=== PATIENT | male | born 1985 | race American Indian/Alaskan Native ===

== ENCOUNTER 2017-04-11 02:29 | Inpatient (IN) | payer BC, OTHER ==
[~2017-04-11 02:29] MED LIST: AMIDATE IV ONE; ZEMURON IV ONE
[2017-04-11] MEDS ORDERED: NARCAN 0.4 MG/1 ML ONE (02:50)
--- NOTE | 2017-04-11 02:56 | Emergency Department Report ---
ED General Adult HPI - General Chief complaint: Overdose Stated complaint: MH Time Seen by Provider: 04/11/17 02:54 Source: patient, family, RN notes reviewed, old records reviewed Mode of arrival: Wheelchair Limitations: Altered Mental Status, Other - History of Present Illness Initial comments: This is a 32-year-old male, the patient is previously unknown to me. Past medical history of convulsions, amphetamine abuse, toxic metabolic encephalopathy, rhabdomyolysis. Patient is brought to the hospital by friends/family for altered mental status and delirium. They indicate that the patient consumed alcohol, and possibly latricia. In the ER, patient was delirious, agitated, and not cooperative. He received 5 mg of Valium, then 130 mg of phenobarbital, and then 260 mg of phenobarbital. He continued to be agitated, combative, and was pulling at his restraints, almost fell off of the stretcher, and was clearly digit himself and staff members and other patients. Therefore, the patient was intubated for airway protection. Patient was placed on a nasal cannula at 15 L/m, and preoxygenated with 100% FiO2 in addition to nasal cannula. Patient was intubated using direct laryngoscopy with a Gilmer 3 blade, with bolugie introducing device without complications. Patient was found to be febrile with a temperature of 100.6 rectally, tachycardic, and had an elevated lactic acid level. Clinical picture is most likely consistent with sympathomimetic toxicity. He did have fatigable clonus in the bilateral lower extremities but was not hyperreflexic. I contacted his mother, Miss Candice Huber; [phone], and discussed the patient's case and presentation with her. She verbalized understanding, and I did recommend a spinal tap to exclude meningitis and encephalitis. The risks, benefits, alternatives were discussed with Miss Huber. She refused a spinal tap, and requested supportive care with IV antibiotics, and prefers to follow- up culture results. Laboratory studies reviewed, lactic acidosis most likely secondary to convulsive activity, possible tourniquet time. Patient found to be febrile, this is most likely secondary to sympathomimetic toxicity, therefore, patient is placed on active cooling Measures, including ice in the groin and the axilla. Case is presented to the Hospital physician, Dr. Magallanes, who accepts the patient to his service. . -: Gradual Consistency: constant Improves with: none Worsens with: none Associated Symptoms: confusion, diaphoresis, fever/chills - Related Data Home Medications Medication Instructions Recorded Confirmed Last Taken No Known Home Medications [No 10/17/15 10/17/15 Unknown Reported Home Medications] Allergies Allergy/AdvReac Type Severity Reaction Status Date / Time No Known Allergies Allergy Verified 10/16/15 22:33 ED Review of Systems ROS: Stated complaint: MH Other details as noted in HPI Comment: Unobtainable due to pts medical conditions ED Past Medical Hx - Past Medical History Previous Medical History?: Yes Hx Psychiatric Treatment: Yes (DEPRESSION) - Surgical History Past Surgical History?: No - Social History Smoking Status: Current Every Day Smoker Substance Use Type: Other - Medications Home Medications: Home Medications Medication Instructions Recorded Confirmed Last Taken Type No Known Home Medications [No 10/17/15 10/17/15 Unknown History Reported Home Medications] ED Physical Exam - General Limitations: Altered Mental Status, Other General appearance: appears intoxicated, anxious, other (skin is diaphoretic) - Head Head exam: Present: atraumatic, normocephalic - Eye Eye exam: Present: normal appearance, EOMI, other (pupils are dilated) - ENT ENT exam: Present: normal exam, normal orophraynx, mucous membranes moist, normal external ear exam - Neck Neck exam: Present: normal inspection, full ROM. Absent: tenderness, meningismus - Respiratory Respiratory exam: Present: normal lung sounds bilaterally. Absent: respiratory distress, chest wall tenderness - Cardiovascular Cardiovascular Exam: Present: normal rhythm, tachycardia, normal heart sounds. Absent: systolic murmur, diastolic murmur, rubs, gallop - GI/Abdominal GI/Abdominal exam: Present: soft, normal bowel sounds. Absent: distended, tenderness, guarding, rebound, rigid, pulsatile mass - Rectal Rectal exam: Present: deferred - exam: Present: normal inspection - Extremities Exam Extremities exam: Present: normal inspection, full ROM, normal capillary refill. Absent: pedal edema, joint swelling, calf tenderness - Back Exam Back exam: Present: normal inspection. Absent: tenderness, paraspinal tenderness - Neurological Exam Neurological exam: Present: altered, other (moving 4 extremities prior to intubation) - Psychiatric Psychiatric exam: Present: normal affect, normal mood - Skin Skin exam: Present: warm, dry, intact, normal color. Absent: rash ED Course Vital Signs 09/21/17 09/21/17 09/21/17 02:36 03:06 03:08 Temperature 99.4 F 100.1 F H Pulse Rate 111 H 104 H Respiratory 16 55 H 24 Rate Blood Pressure 142/71 Blood Pressure 143/70 [Left] O2 Sat by Pulse 100 99 99 Oximetry 04/11/17 04/11/17 04/11/17 03:15 03:31 03:45 Temperature Pulse Rate 119 H 121 H 121 H Respiratory 60 H 63 H 21 Rate Blood Pressure 215/143 118/52 118/52 Blood Pressure [Left] O2 Sat by Pulse 98 100 100 Oximetry 04/11/17 04/11/17 04/11/17 04:19 04:36 05:00 Temperature Pulse Rate 86 98 H Respiratory 20 Rate Blood Pressure 157/70 104/77 127/67 Blood Pressure [Left] O2 Sat by Pulse 100 100 100 Oximetry - Reevaluation(s) Reevaluation #1: 04/11/17 05:40 Patient remains improved, sedated, intubated, no complications, hemodynamically stable, lactic acid trending down was still elevated. - Intubation Time Out Performed: Yes Sedative: Etomidate Mg Given: 20 Paralytic: Rocuronium Mg Given: 200 Laryngoscope: Gilmer Size: 3 Assist Device Used: fiberoptic device ET Tube Size: 8 Tube Secured Location: teeth Tube Placement Confirmation: visualized tube passing t Patient Tolerated Procedure: well Intubation Complications: none Additional Comments: Patient started on nasal cannula at 15 L/m. He receives [id number] ventilation. He is induced with 20 mg of etomidate, and paralyzed with 200 mg of rocuronium. A Gilmer 3 blade is inserted on a direct laryngoscope, patient found to be anterior, gum elastic bougie inserted into trachea, and an 8.0 endotracheal tube was inserted without difficulty. ED Medical Decision Making - Lab Data Result diagrams: 04/11/17 02:55 04/11/17 03:30 Vital Signs 04/11/17 04/11/17 04/11/17 02:36 03:06 03:08 Temperature 99.4 F 100.1 F H Pulse Rate 111 H 104 H Respiratory 16 55 H 24 Rate Blood Pressure 142/71 Blood Pressure 143/70 [Left] O2 Sat by Pulse 100 99 99 Oximetry 0904/11/17 04/11/17 03:15 03:31 03:45 Temperature Pulse Rate 119 H 121 H 121 H Respiratory 60 H 63 H 21 Rate Blood Pressure 215/143 118/52 118/52 Blood Pressure [Left] O2 Sat by Pulse 98 100 100 Oximetry 04/11/17 04:36 Temperature Pulse Rate 86 Respiratory Rate Blood Pressure 104/77 Blood Pressure [Left] O2 Sat by Pulse 100 Oximetry Labs 04/11/17 04/11/17 04/11/17 02:55 02:55 02:55 WBC 5.3 RBC 4.63 Hgb 15.0 Hct 44.1 MCV 95 H MCH 32 MCHC 34 RDW 14.0 Plt Count 229 PT INR Sodium Potassium Chloride Carbon Dioxide Anion Gap BUN Creatinine Estimated GFR BUN/Creatinine Ratio Glucose Lactic Acid Calcium Total Bilirubin AST ALT Alkaline Phosphatase Total Creatine Kinase Troponin T Total Protein Albumin Albumin/Globulin Ratio Urine Color Urine Turbidity Urine pH Ur Specific [place] Urine Protein Urine Glucose (UA) Urine Ketones Urine Blood Urine Nitrite Urine Bilirubin Urine Urobilinogen Ur Leukocyte Esterase Urine WBC (Auto) Urine RBC (Auto) U Epithel Cells (Auto) Amorphous Crystals Hyaline Casts Urine Mucus Salicylates < 0.3 L Urine Opiates Screen Urine Methadone Screen Acetaminophen < 15.0 Ur Barbiturates Screen Ur Phencyclidine Scrn Ur Amphetamines Screen U Benzodiazepines Scrn Urine Cocaine Screen U Marijuana (THC) Screen Drugs of Abuse Note Plasma/Serum Alcohol 04/11/17 04/11/17 04/11/17 02:55 02:55 02:55 WBC RBC Hgb Hct MCV MCH MCHC RDW Plt Count PT 14.0 INR 1.03 Sodium Potassium Chloride Carbon Dioxide Anion Gap BUN Creatinine Estimated GFR BUN/Creatinine Ratio Glucose Lactic Acid 8.80 H* Calcium Total Bilirubin AST ALT Alkaline Phosphatase Total Creatine Kinase Troponin T Total Protein Albumin Albumin/Globulin Ratio Urine Color Urine Turbidity Urine pH Ur Specific [place] Urine Protein Urine Glucose (UA) Urine Ketones Urine Blood Urine Nitrite Urine Bilirubin Urine Urobilinogen Ur Leukocyte Esterase Urine WBC (Auto) Urine RBC (Auto) U Epithel Cells (Auto) Amorphous Crystals Hyaline Casts Urine Mucus Salicylates Urine Opiates Screen Urine Methadone Screen Acetaminophen Ur Barbiturates Screen Ur Phencyclidine Scrn Ur Amphetamines Screen U Benzodiazepines Scrn Urine Cocaine Screen U Marijuana (THC) Screen Drugs of Abuse Note Plasma/Serum Alcohol 0.15 H 04/11/17 04/11/17 04/11/17 02:55 03:29 03:29 WBC RBC Hgb Hct MCV MCH MCHC RDW Plt Count PT INR Sodium Potassium Chloride Carbon Dioxide Anion Gap BUN Creatinine Estimated GFR BUN/Creatinine Ratio Glucose Lactic Acid Calcium Total Bilirubin AST ALT Alkaline Phosphatase Total Creatine Kinase Troponin T < 0.010 Total Protein Albumin Albumin/Globulin Ratio Urine Color Straw Urine Turbidity Clear Urine pH 5.0 Ur Specific [place] 1.008 Urine Protein <15 mg/dl Urine Glucose (UA) Neg Urine Ketones Neg Urine Blood Neg Urine Nitrite Neg Urine Bilirubin Neg Urine Urobilinogen < 2.0 Ur Leukocyte Esterase Neg Urine WBC (Auto) 1.0 Urine RBC (Auto) 2.0 U Epithel Cells (Auto) < 1.0 Amorphous Crystals Few Hyaline Casts 2 Urine Mucus Few Salicylates Urine Opiates Screen Presumptive negative Urine Methadone Screen Presumptive negative Acetaminophen Ur Barbiturates Screen Presumptive negative Ur Phencyclidine Scrn Presumptive negative Ur Amphetamines Screen Presumptive positive U Benzodiazepines Scrn Presumptive negative Urine Cocaine Screen Presumptive negative U Marijuana (THC) Screen Presumptive positive Drugs of Abuse Note Disclamer Plasma/Serum Alcohol 04/11/17 03:30 WBC RBC Hgb Hct MCV MCH MCHC RDW Plt Count PT INR Sodium 140 Potassium 3.4 L Chloride 97.9 L Carbon Dioxide 15 L Anion Gap 31 BUN 12 Creatinine 1.5 Estimated GFR > 60 BUN/Creatinine Ratio 8.00 Glucose 135 H Lactic Acid Calcium 9.5 Total Bilirubin 0.20 AST 33 ALT 25 Alkaline Phosphatase 59 Total Creatine Kinase 485 H Troponin T Total Protein 8.4 H Albumin 4.9 Albumin/Globulin Ratio 1.4 Urine Color Urine Turbidity Urine pH Ur Specific [place] Urine Protein Urine Glucose (UA) Urine Ketones Urine Blood Urine Nitrite Urine Bilirubin Urine Urobilinogen Ur Leukocyte Esterase Urine WBC (Auto) Urine RBC (Auto) U Epithel Cells (Auto) Amorphous Crystals Hyaline Casts Urine Mucus Salicylates Urine Opiates Screen Urine Methadone Screen Acetaminophen Ur Barbiturates Screen Ur Phencyclidine Scrn Ur Amphetamines Screen U Benzodiazepines Scrn Urine Cocaine Screen U Marijuana (THC) Screen Drugs of Abuse Note Plasma/Serum Alcohol - EKG Data -: EKG Interpreted by Wi Rate: tachycardia - EKG Data 04/11/17 04:58 Sinus tachycardia, 126 beats minute normal axis, motion artifact, high left ventricular voltage, not morphologically consistent with STEMI. - Radiology Data Radiology results: report reviewed, image reviewed interpreted by me: X-ray of the chest #1 negative for acute disease. Repeat x-ray demonstrates appropriate placement of endotracheal tube. Noncontrast CT scan of the brain is negative for acute disease. Noncontrast CT scan of the brain is negative - Medical Decision Making Differential diagnosis: Meningitis, encephalitis, toxic metabolic encephalopathy , and some passive, medical toxicity, polysubstance intoxication Critical Care Time: Yes Critical care time in (mins) excluding proc time.: 35 Critical care attestation.: If time is entered above; I have spent that time in minutes in the direct care of this critically ill patient, excluding procedure time. ED Disposition Clinical Impression: Altered mental status, Amphetamine abuse, Amphetamine adverse reaction, SIRS ( systemic inflammatory response syndrome), Toxic metabolic encephalopathy Disposition: 09 OP ADMIT IP TO THIS HOSP Is pt being admited?: Yes Condition: Critical Referrals: PRIMARY CARE, [Primary Care Provider] - 3-5 Days
[2017-04-11] MEDS ORDERED: VALIUM ONE (03:01)
[2017-04-11] MEDS ORDERED: NACL 0.9% 1000 ML IV ONE (03:04)
[2017-04-11] MEDS ORDERED: VALIUM IV ONE (03:05)
[2017-04-11] MEDS ORDERED: ROCEPHIN/NS 2 GM/100 ML 2 GM/100 ML BAG IV ONE (03:05)
[2017-04-11] MEDS ORDERED: DECADRON IV ONE (03:05)
[2017-04-11] MEDS ORDERED: NARCAN 0.4 MG/1 ML IV ONE (03:15)
[2017-04-11] MEDS ORDERED: DIPRIVAN 10 MG/ML 1,000 MG/100 ML BOTTLE IV ONE (03:40)
[2017-04-11 03:45] LABS: Hematocrit 44.1 % (35.5-45.6); Red Blood Count 4.63 M/mm3 (3.65-5.03); White Blood Count 5.3 K/mm3 (4.5-11.0)
[2017-04-11 03:46] LABS: INR 1.03 (0.87-1.13); Mean Corpuscular HGB Conc 34 % (32-34); Mean Corpuscular Hemoglobin 32 pg (28-32); Mean Corpuscular Volume 95 fl (84-94); Platelet Count 229 K/mm3 (140-440)
[2017-04-11] MEDS: DIPRIVAN 10 MG/ML 1,000 MG/100 ML BOTTLE IV SCH ×5 (03:46→23:29)
[2017-04-11] MEDS ORDERED: ARTIFICIAL TEARS OPHTH OINT OU PRN (03:52)
[2017-04-11] MEDS ORDERED: VASELINE LIP THERAPY TP PRN (03:52)
[2017-04-11] MEDS ORDERED: ZEMURON IV ONE (03:52)
[2017-04-11] MEDS ORDERED: AMIDATE IV ONE (03:52)
[2017-04-11 03:58] LABS: Alanine Aminotransferase 25 units/L (7-56); Albumin 4.9 g/dL (3.9-5); Albumin/Globulin Ratio 1.4 %; Alkaline Phosphatase 59 units/L (35-129); Anion Gap 31 mmol/L; Blood Urea Nitrogen 12 mg/dL (9-20); Calcium 9.5 mg/dL (8.4-10.2); Carbon Dioxide 15 mmol/L (22-30); Chloride 97.9 mmol/L (98-107); Creatine Kinase 485 units/L (55-170); Glucose 135 mg/dL (75-100); Potassium 3.4 mmol/L (3.6-5.0); Sodium 140 mmol/L (137-145); Total Protein 8.4 g/dL (6.3-8.2)
[2017-04-11 04:13] LABS: LA REFLEX TNR
[2017-04-11 04:13] LABS: Urine Drugs of Abuse Note Disclamer
[2017-04-11] MEDS ORDERED: VANCOMYCIN VIAL IV ONE (04:18)
[2017-04-11] MEDS ORDERED: VANCOMYCIN 2,000 MG in NACL 0.9% 500 ML 500 ML IV ONE (04:30)
[2017-04-11 04:34] LABS: Bilirubin,Urine NEG (Negative); Blood,Urine NEG (Negative); Ketones,Urine NEG (Negative); Leukocyte Esterase,Urine NEG (Negative); Mucus,Urine FEW /HPF; Nitrite,Urine NEG (Negative); Protein,Urine <15 mg/dL mg/dL (Negative); Urobilinogen,Urine < 2.0 mg/dL (<2.0)
[2017-04-11] MEDS ORDERED: VANCOMYCIN PHARMACY TO DOSE IV SCH (05:00)
[2017-04-11 05:09] LABS: ISTAT Base Excess -9; ISTAT HCO3 17.4; ISTAT PCO2 33.6 (35-45); ISTAT PH 7.322 (7.35-7.45); ISTAT PO2 222 (80-105); ISTAT SO2 100; ISTAT TCO2 18
[2017-04-11] MEDS ORDERED: VITAMIN B-1 100 MG, FOLVITE 1 MG, INFUVITE 10 ML in NACL 0.9% 1000 ML 1,000 ML IV ONE (05:24)
[2017-04-11] MEDS ORDERED: ZOFRAN IV PRN (05:25)
[2017-04-11] MEDS ORDERED: TYLENOL PR PRN (05:26)
--- NOTE | 2017-04-11 05:30 | Cat Scan Report ---
FINAL REPORT PROCEDURE: CT HEAD/BRAIN WO CON TECHNIQUE: Computerized tomography of the head was performed without contrast material. HISTORY: Fever/Sepsis COMPARISON: No prior studies are available for comparison. FINDINGS: Skull and scalp: Normal. Paranasal sinuses: There is fluid in the sphenoid sinus.. Ventricles and subarachnoid spaces: Normal. Cerebrum: No evidence of hemorrhage, acute infarction or mass . Cerebellum and brainstem: No evidence of hemorrhage, acute infarction or mass. Vasculature: Normal. Comments: None. IMPRESSION: There is no acute intracranial abnormality. There is sinusitis.
[2017-04-11] MEDS: fentaNYL DRIP Premix 2,000 MCG/100 ML BAG IV SCH ×3 (06:15→23:29)
[2017-04-11] MEDS ORDERED: fentaNYL DRIP Premix 2,000 MCG/100 ML BAG IV ONE (06:29)
--- NOTE | 2017-04-11 07:31 | XRay Report ---
AP CHEST: HISTORY: Endotracheal tube placement An endotracheal tube has been inserted since earlier today at 0321 hours which terminates 2.9 cm superior to the van. AP view of the chest demonstrates a normal mediastinal and cardiac contour with clear lungs and normal bony and soft tissue structures. IMPRESSION: Unremarkable AP chest.
--- NOTE | 2017-04-11 07:32 | XRay Report ---
AP CHEST: HISTORY: Fever, sepsis AP view of the chest demonstrates a normal mediastinal and cardiac contour with clear lungs and normal bony and soft tissue structures. IMPRESSION: Unremarkable AP chest.
--- NOTE | 2017-04-11 07:34 | History and Physical Report ---
CHIEF COMPLAINT: Change in mental status. HISTORY OF PRESENT ILLNESS: The patient is a 32-year-old male brought to the Emergency Room by friends and family because of change in mental status. The patient was noted to be consuming alcohol and also was noted to have possibly taking latricia and was found to have altered mental status by family, delirious and was also agitated and they decided to bring him to the Emergency Room. There was no history of chest pain. No history of nausea, vomiting, fever or chills. The patient's significant other stated that the patient has had similar symptoms manifestation about 1-2 years ago. The patient was subsequently intubated in the Emergency Room and presented for admission. PAST MEDICAL HISTORY: Pertinent for depression, methamphetamine abuse, renal insufficiency. PAST SURGICAL HISTORY: Unremarkable. FAMILY HISTORY: Noncontributory. SOCIAL HISTORY: The patient uses illicit drugs, drinks alcohol and smokes cigarettes. MEDICATIONS: The patient is not known to be on any home medications. ALLERGIES: There are no known drug allergies. REVIEW OF SYSTEMS: CONSTITUTIONAL: There is no fever, no chills, no diaphoresis. HEENT: There is no headache or sore throat. CARDIOVASCULAR SYSTEM: There is no chest pain, orthopnea. RESPIRATORY: There is no shortness of breath or cough. GASTROINTESTINAL SYSTEM: There is no nausea, no vomiting, no abdominal pain, diarrhea or constipation. NEUROLOGICAL SYSTEM: Change in mental status noted. Agitation noted. Combativeness noted. Confusion noted. There is no dizziness. MUSCULOSKELETAL SYSTEM: There is no joint pain or swelling. DERMATOLOGICAL SYSTEM: There is no skin rash or itching. GENITOURINARY SYSTEM: There is no dysuria, hematuria, or flank pain. Rest of system review is normal. PHYSICAL EXAMINATION: GENERAL: At the time of exam, the patient was found to be sedated, mechanically ventilated, but not in acute distress. VITAL SIGNS: Shows normal temperature with pulse of 86, respirations of 20, blood pressure 104/77, O2 sat of 100% while on endotracheal tube and mechanical ventilation. HEENT: Eyes show pupils to be equal, round, reactive to light. NECK: Supple with no JVD or carotid bruit. CARDIOVASCULAR SYSTEM: Show first and second heart sounds with no gallops or murmur. RESPIRATORY SYSTEM: Show good air entry on both sides of the lung, he had ET tube and mechanical ventilation without any abnormal breath sounds heard. GASTROINTESTINAL SYSTEM: Show abdomen to be full, soft, nontender with no organomegaly or rigidity elicited. NEUROLOGICAL SYSTEM: Show no evidence of focal deficit. MUSCULOSKELETAL: Show no joint swelling or tenderness. DERMATOLOGICAL SYSTEM: Show no skin rash. GENITOURINARY: Showing no costovertebral angle tenderness. PERTINENT LABORATORY DATA AND IMAGING STUDIES: The patient had chest x-ray done that confirmed the endotracheal tube placement and positioning. Chest x-ray also shows no acute cardiopulmonary lesions. The patient's lab tests, CBC was unremarkable. The patient's ABG showed low pH of 7.32 with low pCO2 of 33 and high pO2 of 222. This was done on FiO2 of 70% with O2 sat of 100%. The patient's chemistry shows slight decrease in potassium of 3.4 and low chloride of 97.9 with normal sodium and low CO2 of 15. The patient's lactic acid level was high with a value of 8.8 and cardiac enzymes show high total CPK of 485 with normal troponin level and total protein was slightly elevated with a value of 8.4. The patient's urinalysis was unremarkable. Toxicology test shows positive amphetamine tests as well as positive marijuana tests. Plasma or serum alcohol level was high with a value of 0.15. The patient's head CT was done with no official report pasted yet under the patient's name. DIAGNOSES: 1. Altered mental status. 2. Polysubstance abuse involving amphetamines, marijuana and alcohol. 3. Respiratory failure. 4. Rhabdomyolysis. PLAN: The patient will be admitted to ICU and will be on IV banana bag containing thiamine, multivitamin, folic acid that will be given once. The patient will continue on sedation while on the mechanical ventilation using propofol drip per protocol. The patient will be on Tylenol 650 mg per rectum every 4 hours for fever, headache, and has had critical care ICU consult with for management of critical care issues. The patient will continue mechanical ventilation until ready for extubation. We will have basic metabolic panel and lactic acid level as well as alcohol level checked this morning. The patient will also have cardiac enzymes involving troponin, total CK, and CK-MB checked every 6 hours x 2 more levels and we will have DVT prophylaxis using a subcutaneous heparin 5000 units every 12 hours. The patient will also be on IV Zofran 4 mg every 8 hours for nausea and vomiting. JOB# [id number] OCN/NTS
[2017-04-11 08:20] LABS: Anion Gap 22 mmol/L; Blood Urea Nitrogen 10 mg/dL (9-20); Calcium 7.7 mg/dL (8.4-10.2); Carbon Dioxide 17 mmol/L (22-30); Chloride 107.9 mmol/L (98-107); Glucose 93 mg/dL (75-100); Potassium 3.8 mmol/L (3.6-5.0); Sodium 143 mmol/L (137-145)
[2017-04-11 08:21] LABS: Creatine Kinase MB 9.8 ng/mL (0.0-4.0)
[2017-04-11 08:23] LABS: Creatine Kinase 1233 units/L (55-170)
[2017-04-11] MEDS: HEPARIN SUB-Q SCH ×2 (10:44→22:49)
[2017-04-11] MEDS: PEPCID IV SCH ×2 (10:44→22:47)
--- NOTE | 2017-04-11 12:43 | Consultation ---
History of Present Illness Consult date: 04/11/17 Requesting physician: JOSSELINE URRUTIA Reason for consult: other (AMS; ) History of present illness: PULMONARY/CCM CONSULT NOTE (Full dictation # [id number]) Please see dictated notes for full details Medications and Allergies Allergies Allergy/AdvReac Type Severity Reaction Status Date / Time No Known Allergies Allergy Verified 10/16/15 22:33 Home Medications Medication Instructions Recorded Confirmed Last Taken Type No Known Home Medications [No 10/17/15 10/17/15 Unknown History Reported Home Medications] Active Meds: Active Medications Acetaminophen (Tylenol) 650 mg [place] Q4H PRN PRN Reason: For Pain/Fever/Headache Famotidine (Pepcid) 20 mg IV BID TIMOTHY Last Admin: 04/11/17 10:44 Dose: 20 mg Heparin Sodium (Porcine) (Heparin) 5,000 unit SUB-Q Q12HR TIMOTHY Last Admin: 04/11/17 10:44 Dose: 5,000 unit Hydrophilic Ointment (Vaseline Lip Therapy) 1 applic TP Q2HR PRN PRN Reason: Dry Lips Fentanyl Citrate (Fentanyl Drip Premix) 2,000 mcg in 100 mls @ 5.23 mls/hr IV TITR TIMOTHY; 1 MCG/KG/HR PRN Reason: Protocol Last Titration: 04/11/17 11:45 Dose: 2 mcg/kg/hr, 10.46 mls/hr Propofol (Diprivan 10 Mg/Ml) 1,000 mg in 100 mls @ 3.138 mls/hr IV TITR TIMOTHY; 5 MCG/KG/MIN PRN Reason: Protocol Last Admin: 04/11/17 10:43 Dose: 40 mcg/kg/min, 25.104 mls/hr Multi-Ingred Cream/Lotion/Oil/Oint (Artificial Tears Ophth Oint) 1 applic OU Q4HR PRN PRN Reason: Dry Eye(s) Ondansetron HCl (Zofran) 4 mg IV Q8H PRN PRN Reason: Nausea And Vomiting Physical Examination Vital signs: Vital Signs Temp Pulse Resp BP Pulse Ox 99.4 F 111 H 16 142/71 100 04/11/17 02:36 04/11/17 02:36 04/11/17 02:36 04/11/17 02:36 04/11/17 02:36 Results - Laboratory Findings CBC and BMP: 04/11/17 02:55 04/11/17 07:56 ABG POC ABG pH 7.322 (7.35-7.45) L 04/11/17 05:03 POC ABG pCO2 33.6 (35-45) L 04/11/17 05:03 POC ABG pO2 222 (80-105) H 04/11/17 05:03 POC ABG HCO3 17.4 04/11/17 05:03 POC ABG Total CO2 18 04/11/17 05:03 POC ABG O2 Sat 100 04/11/17 05:03 PT/INR, D-dimer PT 14.0 Sec. (12.2-14.9) 04/11/17 02:55 INR 1.03 (0.87-1.13) 04/11/17 02:55 Abnormal lab findings: Abnormal Labs 04/11/17 04/11/17 04/11/17 05:37 07:56 07:56 Chloride 107.9 H Carbon Dioxide 17 L Lactic Acid 5.90 H* Calcium 7.7 L D Total Creatine Kinase 1233 H CK-MB (CK-2) 9.8 H
[2017-04-11 12:51] LABS: Creatine Kinase MB 13.2 ng/mL (0.0-4.0)
[2017-04-11 12:52] LABS: Creatine Kinase 1716 units/L (55-170)
[2017-04-11] MEDS ORDERED: SIMPLE SYRUP FEEDTUBE PRN ×2 (13:23)
[2017-04-11] MEDS ORDERED: PANCREAZE DR 10,500 UNIT FEEDTUBE PRN (13:23)
[2017-04-11] MEDS ORDERED: SODIUM BICARBONATE FEEDTUBE PRN (13:23)
[2017-04-11] MEDS ORDERED: NACL 0.9% 1000 ML 1,000 ML IV SCH (16:00)
[2017-04-11 17:05] LABS: ISTAT Base Excess -4; ISTAT HCO3 22.4; ISTAT PCO2 46.6 (35-45); ISTAT PH 7.289 (7.35-7.45); ISTAT PO2 147 (80-105); ISTAT SO2 99; ISTAT TCO2 24
[2017-04-11] MEDS ORDERED: VANCOMYCIN 1,500 MG in NACL 0.9% 500 ML 500 ML IV SCH (18:00)
--- NOTE | 2017-04-11 18:02 | Event Note ---
Date: 04/11/17 Patient seen and examined, remains sedated and intubated, family at bedside. reports prior episode of the same. requesting Psych consult when able.
[2017-04-11] MEDS ORDERED: SODIUM BICARBONATE 150 MEQ in D5W 1,000 ML IV SCH (20:00)
--- NOTE | 2017-04-12 00:08 | XRay Report ---
FINAL REPORT PROCEDURE: XR ABDOMEN 1V AP TECHNIQUE: Abdominal series, including supine and upright AP views. HISTORY: NGT placement COMPARISON: No prior studies are available for comparison. FINDINGS: Bowel gas pattern:Nonobstructive . Masses or calcifications:None . Bony structures:No significant abnormality . Pneumoperitoneum:None . Other:NG tube is in the stomach.. IMPRESSION: No acute abnormality. The NG tube is in the stomach.
[2017-04-12 05:41] LABS: ISTAT Base Excess -1; ISTAT HCO3 24.4; ISTAT PCO2 43.4 (35-45); ISTAT PH 7.358 (7.35-7.45); ISTAT PO2 140 (80-105); ISTAT SO2 99; ISTAT TCO2 26
[2017-04-12 06:08] LABS: Anion Gap 17 mmol/L; Blood Urea Nitrogen 9 mg/dL (9-20); Calcium 8.2 mg/dL (8.4-10.2); Carbon Dioxide 23 mmol/L (22-30); Chloride 107.7 mmol/L (98-107); Glucose 87 mg/dL (75-100); Potassium 3.8 mmol/L (3.6-5.0); Sodium 144 mmol/L (137-145)
[2017-04-12 06:24] LABS: Hemoglobin 13.1 gm/dl (11.8-15.2); Mean Corpuscular HGB Conc 33 % (32-34); Mean Corpuscular Hemoglobin 32 pg (28-32); Mean Corpuscular Volume 97 fl (84-94); Platelet Count 149 K/mm3 (140-440); Red Blood Count 4.13 M/mm3 (3.65-5.03); Red Cell Distribution Width 14.1 % (13.2-15.2); White Blood Count 6.5 K/mm3 (4.5-11.0)
--- NOTE | 2017-04-12 06:40 | Consultation ---
PULMONARY CRITICAL CARE CONSULT CONSULTING PHYSICIAN: Dr. Valderrama, Emergency Room doctor. REASON FOR CONSULTATION: Acute respiratory failure, on mechanical ventilatory support, altered mental status. CHIEF COMPLAINT AND HISTORY OF PRESENT ILLNESS: The patient is a 32-year-old male with past medical history according to family, who gave the history significant for convulsions and presumably drug abuse. He was brought into the ER by his family for essentially delirium. He reportedly consumed some alcohol and some latricia, which is essentially ecstasy. In the ER, he was delirious, he was agitated, he was not cooperative, he received Valium, phenobarbital, continued to be agitated and combative, pulling out his restraints. He ultimately required intubation, so that he could be sedated and controlled. He was successfully intubated in the Emergency Room and we are asked to assist with care. At some point, the Emergency Room physician spoke with the patient's mother and she had refused spinal tap, but I agreed for supportive care. When I stopped by to see him, he was in the intensive care unit room. He had been on sedation, fentanyl and propofol. The propofol had been lightened. He was easily aroused and responded appropriately to me when I did ask him calm down, put his head down and squeeze my hands. Now with regards to tobacco use/abuse history. He is about a 10 plus pack year smoker according to the sister, who is in the room. I do not have any history of emesis or overt aspiration. This really is as much of the history of presentation as I have. PAST MEDICAL HISTORY: History of depression. PAST SURGICAL HISTORY: None. MEDICATIONS: He was on at the time I stopped by to see him according to the medication administration record included the following: He was on Tylenol 650 mg per rectum q. 4 hours p.r.n. mild fever, Pepcid 20 mg IV b.i.d., fentanyl drip was going at 2 mcg/kg/hr, heparin 5000 units subQ q. 12 hours, Zofran 4 mg IV q. 8 hours p.r.n. nausea and vomiting, propofol drip was going at 40 mcg/kg/min. ALLERGIES: No known drug allergies. DIET: Well-built gentleman. Family denies acute weight loss or gain preceding few weeks to months. FAMILY AND SOCIAL HISTORY: Lives in the community. Sisters are in the room. He has about a [id number] tobacco smoking history. Alcohol: He does have a history of alcohol and illicit drug use. REVIEW OF SYSTEMS: Unobtainable secondary to the patient's medical and mental condition. Since he has been here, no gross hematochezia or melena. No gross hematuria. No bloody tracheal secretions. No hematemesis. Complete review of systems obtained as best as I could. Pertinent positives and/or negatives as in body of history above, otherwise they are noncontributory. PHYSICAL EXAMINATION: VITAL SIGNS: At presentation in the Emergency Room, he had a low-grade fever of 99.4 degrees Fahrenheit with a pulse of 111, respiratory rate of 16, blood pressure 142/71, oxygen sats 100%, inspired oxygen concentration at that time was not recorded. HEAD, EYES, EARS, NOSE AND THROAT: Pupils are equal, round, about 2 mm, sluggishly reactive to light. Extraocular muscle movements appeared intact. Grossly, there were no palpable lymph nodes in the supraclavicular or submandibular lymph node chains. No gross jugular venous distention. Endotracheal tube was in place, taped at the lips around 23 to 24 cm. LUNGS: Auscultation of both lung price reveal bilateral coarse breath sounds. No active wheezing. HEART: Heart sounds 1 and 2 are heard. They were regular in rate and rhythm at the time of my evaluation. ABDOMEN: Soft, full, bowel sounds are positive, nontender. EXTREMITIES: Without overt digital clubbing, cyanosis or pedal edema. NEUROLOGIC: The exam was grossly nonfocal. LABORATORY DATA: From my review are as follows: Admission white cell count 5300, hemoglobin 15.0, hematocrit 44.1, platelet count 229. INR was 1.03. Arterial blood gas showed a pH of 7.32, pCO2 of 34, pO2 of 222 that was on 70% FiO2 at that time. Serum sodium was 140, potassium 3.4, chloride 98, bicarbonate 15, BUN 12, creatinine 1.5 and glucose of 135. Lactic acid level was 8.8. CPK was 485. Total protein 8.4. Urinalysis was negative for nitrites and leukocyte esterase. Urine drug screen was presumptive positive for amphetamines and marijuana. Serum alcohol level was elevated at 0.15. CPK is now up to 1716. Blood cultures and tracheal aspirate, no growth to date. Radiographic studies have been reviewed. I have also reviewed the radiologist's interpretation. The CT scan of his head was done at presentation essentially showed no acute intracranial abnormality, but did mention some sinusitis. He had a chest x-ray, really a clear chest x-ray at presentation. Most recent x-ray shows an endotracheal tube tip at the level of the aortic knob perhaps a small element of hypoinflation and appears to be enlargement of the gastric bubble. ASSESSMENT AND PLAN: We have a young gentleman in with drug overuse and idiosyncratic reaction and ultimately intubated for sterilization of airway protection. From a respiratory standpoint, we will see if we can begin spontaneous breathing trials during the day. I have had them hold the propofol, we will lighten sedation, target RASS of -1. Aspiration precautions will be maintained. Ventilator bundles will be addressed daily. Oxygen will be weaned to keep sats greater than or equal to about 90-94%. I will put him on bronchodilators on a p.r.n. basis and if he tolerates the weaning and mental status is acceptable, he will be given a trial of extubation. From a cardiovascular standpoint, relatively hemodynamically stable. We will continue sedation. We will continue to monitor him clinically. From a GI and nutritional standpoint, he is appropriately on GI prophylaxis. Feeding tube will be placed now, enteral nutrition will be started, nutrition consult will be placed. Aspiration precautions will be maintained. From a renal standpoint, serum creatinine is back within normal limits. He is making urine. Electrolytes will be followed, will be monitored and corrected as necessary I should say. I will be ordering magnesium and phosphorus levels in this gentleman with possible history of alcohol abuse. Otherwise, we will follow him clinically. From an Infectious Disease standpoint, he received a dose of Rocephin. I really do not think we are dealing with an acute infective process. White cell count is assuring. We will also get a CRP level. Lactic acid levels are elevated, but trending downwards and I believe some of that was related to this presentation, drug injection, strenuous activity as evidenced by rhabdomyolysis and increase in creatinine kinase levels. Again, we will follow him clinically, off antibiotics. We will follow up cultures and volume resuscitation will continue. From a TOOL DESIGN ENGINEER standpoint, the exam was grossly nonfocal. Neuro imaging is unremarkable, we will follow him clinically. From a general and hospital healthcare maintenance standpoint, he is appropriately on GI and DVT prophylaxis. Flu and pneumonia vaccination will be per protocol. Thank you very much for the consult Dr. Valderrama. We will follow along and make further recommendations as picture progresses/becomes clearer. At this point, I have spent about 35-40 minutes of critical care time without overlap and excluding any procedural time that may be necessary. He is critically ill on life-sustaining interventions including mechanical ventilatory support, at higher risk for further deterioration including . JOB# [id number] MYCHAL/MEGAN
--- NOTE | 2017-04-12 08:27 | XRay Report ---
PORTABLE CHEST INDICATION: Followup respiratory failure. COMPARISON: Yesterday. FINDINGS: Portable, frontal chest radiograph, 2:23 AM, 04/12/2017 demonstrates new esophagogastric tube tip likely about the gastric antrum. Stable ET tube with normal cardiomediastinal silhouette and clear lungs. Mild mid thoracic levoscoliosis. EKG leads. CONCLUSION: New esophagogastric tube; otherwise stable exam, as described. Thank you for the opportunity to participate in this patient's care.
[2017-04-12] MEDS: HEPARIN SUB-Q SCH ×2 (09:37→21:24)
[2017-04-12] MEDS: PEPCID PO SCH ×2 (09:37→21:24)
[2017-04-12 11:11] LABS: ISTAT Base Excess 1; ISTAT HCO3 26.3; ISTAT PCO2 46.8 (35-45); ISTAT PH 7.358 (7.35-7.45); ISTAT PO2 94 (80-105); ISTAT SO2 97; ISTAT TCO2 28
--- NOTE | 2017-04-12 12:40 | Progress Note ---
Subjective Date of service: 04/12/17 Principal diagnosis: Acute Respiratory Failure on MVS; Acute Encephalopathy Interval history: Seen and examined at bedside; 24 hour events reviewed; nursing and respiratory care staff consulted; no adverse overnight events reported to me; Objective Vital Signs - 12hr 04/12/17 04/12/17 04/12/17 00:45 01:00 01:14 Temperature Pulse Rate 53 L 53 L 50 L Pulse Rate [ From Monitor] Respiratory 16 16 Rate Blood Pressure 112/58 108/53 108/53 O2 Sat by Pulse 100 99 100 Oximetry 04/12/17 04/12/17 04/12/17 01:15 01:30 01:45 Temperature Pulse Rate 50 L 54 L 53 L Pulse Rate [ From Monitor] Respiratory 16 16 16 Rate Blood Pressure 106/58 111/56 108/53 O2 Sat by Pulse 100 100 100 Oximetry 04/12/17 04/12/17 04/12/17 02:00 02:15 02:30 Temperature Pulse Rate 50 L 47 L 53 L Pulse Rate [ From Monitor] Respiratory 16 16 16 Rate Blood Pressure 111/56 111/59 114/65 O2 Sat by Pulse 100 100 100 Oximetry 04/12/17 04/12/17 04/12/17 02:45 03:01 03:08 Temperature Pulse Rate 47 L 50 L 50 L Pulse Rate [ From Monitor] Respiratory 16 16 16 Rate Blood Pressure 114/65 114/65 O2 Sat by Pulse 100 100 100 Oximetry 04/12/17 04/12/17 04/12/17 03:15 03:31 03:45 Temperature Pulse Rate 48 L 49 L 47 L Pulse Rate [ From Monitor] Respiratory 16 17 16 Rate Blood Pressure 114/65 144/66 144/66 O2 Sat by Pulse 100 100 100 Oximetry 04/12/17 04/12/17 04/12/17 04:00 04:05 04:15 Temperature 97.9 F Pulse Rate 48 L 48 L Pulse Rate [ From Monitor] Respiratory 14 16 Rate Blood Pressure 139/70 139/70 O2 Sat by Pulse 100 100 Oximetry 04/12/17 04/12/17 04/12/17 04:30 04:45 05:00 Temperature Pulse Rate 47 L 48 L 50 L Pulse Rate [ From Monitor] Respiratory 16 12 16 Rate Blood Pressure 145/70 145/70 149/74 O2 Sat by Pulse 100 100 100 Oximetry 04/12/17 04/12/1704/12/17 05:15 05:30 05:45 Temperature Pulse Rate 47 L 60 48 L Pulse Rate [ From Monitor] Respiratory 16 14 16 Rate Blood Pressure 149/74 155/70 155/70 O2 Sat by Pulse 100 96 99 Oximetry 04/12/17 04/12/17 04/12/17 06:00 06:01 06:15 Temperature Pulse Rate 46 L 46 L 46 L Pulse Rate [ From Monitor] Respiratory 16 16 Rate Blood Pressure 137/70 137/70 O2 Sat by Pulse 100 97 99 Oximetry 04/12/17 04/12/17 04/12/17 06:30 07:01 07:30 Temperature Pulse Rate 49 L 50 L 54 L Pulse Rate [ From Monitor] Respiratory 16 12 16 Rate Blood Pressure 144/68 134/68 151/72 O2 Sat by Pulse 96 94 95 Oximetry 04/12/17 04/12/17 04/12/17 07:46 08:00 08:31 Temperature 98.4 F Pulse Rate 49 L 79 Pulse Rate [ 50 L From Monitor] Respiratory 16 16 13 Rate Blood Pressure 145/73 159/81 O2 Sat by Pulse 98 95 92 Oximetry 04/12/17 04/12/17 04/12/17 08:50 09:00 09:30 Temperature Pulse Rate 51 L 50 L 52 L Pulse Rate [ From Monitor] Respiratory 14 16 Rate Blood Pressure 159/81 146/64 155/66 O2 Sat by Pulse 95 94 93 Oximetry 04/12/17 04/12/17 04/12/17 10:00 10:30 11:00 Temperature Pulse Rate 50 L 50 L 50 L Pulse Rate [ From Monitor] Respiratory 14 17 12 Rate Blood Pressure 141/63 141/58 137/62 O2 Sat by Pulse 93 94 93 Oximetry 04/12/17 04/12/17 04/12/17 11:20 11:30 11:55 Temperature Pulse Rate 56 L Pulse Rate [ 54 L From Monitor] Respiratory 14 17 Rate Blood Pressure 150/60 O2 Sat by Pulse 97 96 99 Oximetry 04/12/17 12:00 Temperature Pulse Rate 54 L Pulse Rate [ From Monitor] Respiratory 14 Rate Blood Pressure 148/63 O2 Sat by Pulse 95 Oximetry CBC and BMP: 04/12/17 04:47 04/12/17 04:47 ABG, PT/INR, D-dimer: ABG POC ABG pH 7.358 (7.35-7.45) 04/12/17 10:58 POC ABG pCO2 46.8 (35-45) H 04/12/17 10:58 POC ABG pO2 94 (80-105) 04/12/17 10:58 POC ABG HCO3 26.3 04/12/17 10:58 POC ABG Total CO2 28 04/12/17 10:58 POC ABG O2 Sat 97 04/12/17 10:58 PT/INR, D-dimer PT 14.0 Sec. (12.2-14.9) 04/11/17 02:55 INR 1.03 (0.87-1.13) 04/11/17 02:55 Abnormal lab findings: Abnormal Labs 04/11/17 04/11/17 04/11/17 05:37 07:56 07:56 MCV POC ABG pH POC ABG pCO2 POC ABG pO2 Chloride 107.9 H Carbon Dioxide 17 L Lactic Acid 5.90 H* Calcium 7.7 L D Total Creatine Kinase 1233 H CK-MB (CK-2) 9.8 H 04/11/17 04/11/17 04/12/17 12:07 16:20 04:47 MCV 97 H POC ABG pH 7.289 L POC ABG pCO2 46.6 H POC ABG pO2 147 H Chloride Carbon Dioxide Lactic Acid Calcium Total Creatine Kinase 1716 H CK-MB (CK-2) 13.2 H 04/12/17 04/12/17 04/12/17 04:47 05:25 10:58 MCV POC ABG pH POC ABG pCO2 46.8 H POC ABG pO2 140 H Chloride 107.7 H Carbon Dioxide Lactic Acid Calcium 8.2 L Total Creatine Kinase CK-MB (CK-2)
[2017-04-12] MEDS ORDERED: ZOFRAN IV PRN (18:24)
[2017-04-12] MEDS ORDERED: PHENERGAN PO PRN (18:26)
--- NOTE | 2017-04-12 22:35 | Progress Note ---
Assessment and Plan Assessment and plan: Patient is a 32 year old male who presented to the Emergency room With toxic metabolic encephalopathy due to alcohol and mixture of substances of abuse. Persistent Nausea and vomiting. * Possible viral gastritis induced. Polysubstance abuses * Amphetamins, mariujuna, alcohol Toxic Metabolic Encepaolopathy * SECONDARY TO ABOVE Rhabdomyolysis * CONTINUE GENTLE HYDRATIONS. iMPOVING * Disuccsed plan ith patient and family, anticipate discharge in am History Interval history: Patient seen and examined today, extubated eariler today. Still with nausea and vomiting,. Unsure what happened to him but thankful he is feeling better. No other adverse event reported by Nursing staff Hospitalist Physical - Constitutional Vitals: Temp Pulse Resp BP Pulse Ox 97.9 F 58 L 18 142/69 98 04/12/17 19:48 04/12/17 19:48 04/12/17 19:48 04/12/17 19:48 04/12/17 19:48 General appearance: Present: no acute distress, well-nourished - EENT Eyes: Present: PERRL, EOM intact - Neck Neck: Present: supple, normal ROM - Respiratory Respiratory effort: normal Respiratory: bilateral: diminished - Cardiovascular Rhythm: regular Heart Sounds: Present: S1 & S2. Absent: systolic murmur, diastolic murmur - Extremities Extremities: no ischemia, pulses intact Peripheral Pulses: within normal limits - Abdominal General gastrointestinal: soft, non-tender, non-distended, normal bowel sounds Localized gastrointestinal: tender: LUQ, guarding: LUQ - Integumentary Integumentary: Present: clear, warm, dry - Psychiatric Psychiatric: appropriate mood/affect, intact judgment & insight - Neurologic Neurologic: CNII-XII intact - Allied Health Allied health notes reviewed: nursing Results - Labs CBC & Chem 7: 04/12/17 04:47 04/12/17 04:47 Labs: Laboratory Last Values WBC 6.5 K/mm3 (4.5-11.0) 04/12/17 04:47 RBC 4.13 M/mm3 (3.65-5.03) 04/12/17 04:47 Hgb 13.1 gm/dl (11.8-15.2) 04/12/17 04:47 Hct 40.0 % (35.5-45.6) 04/12/17 04:47 MCV 97 fl (84-94) H 04/12/17 04:47 MCH 32 pg (28-32) 04/12/17 04:47 MCHC 33 % (32-34) 04/12/17 04:47 RDW 14.1 % (13.2-15.2) 04/12/17 04:47 Plt Count 149 K/mm3 (140-440) 04/12/17 04:47 PT 14.0 Sec. (12.2-14.9) 04/11/17 02:55 INR 1.03 (0.87-1.13) 04/11/17 02:55 POC ABG pH 7.358 (7.35-7.45) 04/12/17 10:58 POC ABG pCO2 46.8 (35-45) H 04/12/17 10:58 POC ABG pO2 94 (80-105) 04/12/17 10:58 POC ABG HCO3 26.3 04/12/17 10:58 POC ABG Total CO2 28 04/12/17 10:58 POC ABG O2 Sat 97 04/12/17 10:58 POC ABG Base Excess 1 04/12/17 10:58 FiO2 25 % 04/12/17 10:58 Sodium 144 mmol/L (137-145) 04/12/17 04:47 Potassium 3.8 mmol/L (3.6-5.0) 04/12/17 04:47 Chloride 107.7 mmol/L (98-107) H 04/12/17 04:47 Carbon Dioxide 23 mmol/L (22-30) 04/12/17 04:47 Anion Gap 17 mmol/L 04/12/17 04:47 BUN 9 mg/dL (9-20) 04/12/17 04:47 Creatinine 1.0 mg/dL (0.8-1.5) 04/12/17 04:47 Estimated GFR > 60 ml/min 04/12/17 04:47 BUN/Creatinine Ratio 9.00 % 04/12/17 04:47 Glucose 87 mg/dL (75-100) 04/12/17 04:47 Lactic Acid 1.00 mmol/L (0.7-2.0) 04/11/17 20:35 Calcium 8.2 mg/dL (8.4-10.2) L 04/12/17 04:47 Total Bilirubin 0.20 mg/dL (0.1-1.2) 04/11/17 03:30 AST 33 units/L (5-40) 04/11/17 03:30 ALT 25 units/L (7-56) 04/11/17 03:30 Alkaline Phosphatase 59 units/L (35-129) 04/11/17 03:30 Total Creatine Kinase 1427 units/L (55-170) H 04/12/17 12:45 CK-MB (CK-2) 13.2 ng/mL (0.0-4.0) H 04/11/17 12:07 CK-MB (CK-2) Rel Index 0.7 (0-4) 04/11/17 12:07 Troponin T < 0.010 ng/mL (0.00-0.029) 04/11/17 12:07 Total Protein 8.4 g/dL (6.3-8.2) H 04/11/17 03:30 Albumin 4.9 g/dL (3.9-5) 04/11/17 03:30 Albumin/Globulin Ratio 1.4 % 04/11/17 03:30 Urine Color Straw (Yellow) 04/11/17 03:29 Urine Turbidity Clear (Clear) 04/11/17 03:29 Urine pH 5.0 (5.0-7.0) 04/11/17 03:29 Ur Specific Gibbs 1.008 (1.003-1.030) 04/11/17 03:29 Urine Protein <15 mg/dl mg/dL (Negative) 04/11/17 03:29 Urine Glucose (UA) Neg mg/dL (Negative) 04/11/17 03:29 Urine Ketones Neg mg/dL (Negative) 04/11/17 03:29 Urine Blood Neg (Negative) 04/11/17 03:29 Urine Nitrite Neg (Negative) 04/11/17 03:29 Urine Bilirubin Neg (Negative) 04/11/17 03:29 Urine Urobilinogen < 2.0 mg/dL (<2.0) 04/11/17 03:29 Ur Leukocyte Esterase Neg (Negative) 04/11/17 03:29 Urine WBC (Auto) 1.0 /HPF (0.0-6.0) 04/11/17 03:29 Urine RBC (Auto) 2.0 /HPF (0.0-6.0) 04/11/17 03:29 U Epithel Cells (Auto) < 1.0 /HPF (0-13.0) 04/11/17 03:29 Amorphous Crystals Few 04/11/17 03:29 Hyaline Casts 2 /LPF 04/11/17 03:29 Urine Mucus Few /HPF 04/11/17 03:29 Salicylates < 0.3 mg/dL (2.8-20.0) L 04/11/17 02:55 Urine Opiates Screen Presumptive negative 04/11/17 03:29 Urine Methadone Screen Presumptive negative 04/11/17 03:29 Acetaminophen < 15.0 ug/mL (10.0-30.0) 04/11/17 02:55 Ur Barbiturates Screen Presumptive negative 04/11/17 03:29 Ur Phencyclidine Scrn Presumptive negative 04/11/17 03:29 Ur Amphetamines Screen Presumptive positive 04/11/17 03:29 U Benzodiazepines Scrn Presumptive negative 04/11/17 03:29 Urine Cocaine Screen Presumptive negative 04/11/17 03:29 U Marijuana (THC) Screen Presumptive positive 04/11/17 03:29 Drugs of Abuse Note Disclamer 04/11/17 03:29 Plasma/Serum Alcohol 0.05 gm% (0-0.07) 04/11/17 07:56 - Imaging and Cardiology Chest x-ray: image reviewed
[2017-04-13] MEDS: HEPARIN SUB-Q SCH (10:55)
[2017-04-13] MEDS: PEPCID PO SCH (10:59)
--- NOTE | 2017-04-13 11:54 | Discharge Summary ---
Providers - Providers Date of Admission: 04/11/17 05:17 Attending physician: DELLA BRONSON MD 04/11/17 13:08 Consult to Dietitian/Nutrition [CONS] Routine Physician Instructions: Reason For Exam: vent - needs tube feed Reason for Consult: Write/Manage Tube Feeding Primary care physician: [employer] Hospitalization Reason for admission: RESPIRATORY FAILURE Condition: Stable Hospital course: Patient is a 32 year old male who presented to the Emergency room With toxic metabolic encephalopathy due to alcohol and mixture of substances of abuse including THC and amphatemains at a green party. Patient was obtunded on admission also with Rhabdomyolysis and intubated for airway protection and also started on fluids. He was successfully extubated and is improving. still had some nausea which resolved with phernagan. We had extensive discussion about complaince and patient verablized understanding. . Toxic Metabolic Encepaolopathy Rhabdomyolysis Acute Respiratory failure Persistent Nausea and vomiting. Polysubstance abuses * Amphetamins, mariujuna, alcohol * Disposition: DC-01 TO HOME OR SELFCARE Time spent for discharge: 35 MINS Core Measure Documentation - Palliative Care Palliative Care/ Comfort Measures: Not Applicable - Core Measures Any of the following diagnoses?: none - VTE Discharge Requirements Deep Vein Thrombosis/Pulmonary Embolism Present on Admission: No Exam - Constitutional Vitals: Temp Pulse Resp BP Pulse Ox 98.7 F 67 16 109/60 94 04/13/17 08:03 04/13/17 08:03 04/13/17 08:03 04/13/17 08:03 04/13/17 10:15 General appearance: Present: no acute distress, well-nourished - EENT Eyes: Present: PERRL, EOM intact ENT: hearing intact, clear oral mucosa - Neck Neck: Present: supple, normal ROM - Respiratory Respiratory: bilateral: CTA - Cardiovascular Rhythm: regular Heart Sounds: Present: S1 & S2. Absent: systolic murmur, diastolic murmur - Extremities Extremities: no ischemia, pulses intact, pulses symmetrical, normal temperature , normal color, Full ROM Peripheral Pulses: within normal limits - Abdominal General gastrointestinal: Present: soft, non-tender, non-distended, normal bowel sounds - Integumentary Integumentary: Present: clear, warm, dry - Musculoskeletal Musculoskeletal: strength equal bilaterally - Psychiatric Psychiatric: appropriate mood/affect, intact judgment & insight, cooperative - Neurologic Neurologic: CNII-XII intact, no focal deficits, moves all extremities - Allied Health Allied health notes reviewed: nursing Plan Activity: advance as tolerated, fall precautions Diet: regular Special Instructions: record daily weights, record daily BP diary, smoking cessation, other (MUST AVOID SUBSTANCE ABUSE) Follow up with: PRIMARY CARE, [Primary Care Provider] - 3-5 Days Prescriptions: Famotidine [Pepcid] 20 mg PO DAILY #30 tablet Phenol 1.4% [Chloraseptic] 1 spray MM PRN PRN #1 bottle PRN Reason: Sore Throat Promethazine [Phenergan TAB] 25 mg PO Q6H PRN #14 tablet PRN Reason: Nausea And Vomiting
[2017-04-13] MEDS ORDERED: CHLORASEPTIC MM PRN (12:00)
[2017-04-13 17:36] VITALS: BP 109/60
== END 2017-04-13 17:00 | disposition home or self-care (01) | DRG 208 ==
LOC: ED 02:29 → CC1 05:17 → 4A 04-12 15:39
PROVIDERS: ADMIT Internal Medicine; ATTEND Internal Medicine
PROC: 4A033R1 Measurement of Arterial Saturation, Peripheral, Percutaneous Approach (ICD-10-PCS; principal; 2017-04-11)
PROC: 5A1945Z Respiratory Ventilation, 24-96 Consecutive Hours (ICD-10-PCS; 2017-04-12)
PROC: 0BH17EZ Insertion of Endotracheal Airway into Trachea, Via Natural or Artificial Opening (ICD-10-PCS; 2017-04-12)
DX: J96.00 Acute respiratory failure, unspecified whether with hypoxia or hypercapnia (principal); G92 Toxic encephalopathy; M62.82 Rhabdomyolysis; R65.10 Systemic inflammatory response syndrome (SIRS) of non-infectious origin without acute organ dysfunction; F19.10 Other psychoactive substance abuse, uncomplicated; T43.625A Adverse effect of amphetamines, initial encounter; R41.82 Altered mental status, unspecified; F15.10 Other stimulant abuse, uncomplicated; F12.10 Cannabis abuse, uncomplicated; F10.10 Alcohol abuse, uncomplicated; F32.9 Major depressive disorder, single episode, unspecified; F17.200 Nicotine dependence, unspecified, uncomplicated
CPT/HCPCS: 36415; 36600; 70450; 71010; 74000; 80048; 80053; 80307; 80320; 81001; 82140; 82550; 82553; 82803; 84484; 85027; 85610; 87040; 87086; 87205; 93005; 93010; 94002; 94003; 94760; 96365; 96375; 99406; G0480; J0696; J1100; J1644; J2310; J2405; J2560; J2704; J3010; J3360; J3370; J3411; J7030; J7040; J7070; Q0169

== ENCOUNTER 2017-04-15 06:33 | Emergency (ER) | payer SELFPAY ==
--- NOTE | 2017-04-15 07:43 | XRay Report ---
CHEST 2 VIEWS INDICATION: Shortness of breath. COMPARISON: 04/12/2017 FINDINGS: PA and lateral chest radiographs demonstrate interval extubation and esophagogastric tube removal. Stable cardiomediastinal silhouette and inspiratory effort. Slight fluid or thickening along the fissures. Subtle hazy posterior costophrenic angle blunting/trace pleural fluid. No CHF. Mild mid thoracic levoscoliosis. CONCLUSION: Interval extubation and esophagogastric tube removal with trace pleural effusions possible, as described. Thank you for the opportunity to participate in this patient's care.
[2017-04-15 07:51] LABS: Basophils % (Auto) 0.5 % (0.0-1.8); Eosinophils % (Auto) 1.4 % (0.0-4.3); Hematocrit 39.7 % (35.5-45.6); Hemoglobin 13.8 gm/dl (11.8-15.2); Mean Corpuscular HGB Conc 35 % (32-34); Mean Corpuscular Hemoglobin 33 pg (28-32); Mean Corpuscular Volume 94 fl (84-94); Platelet Count 171 K/mm3 (140-440); Red Blood Count 4.22 M/mm3 (3.65-5.03); Red Cell Distribution Width 13.2 % (13.2-15.2); White Blood Count 4.9 K/mm3 (4.5-11.0)
[2017-04-15 07:59] LABS: Anion Gap 15 mmol/L; Blood Urea Nitrogen 6 mg/dL (9-20); Calcium 9.1 mg/dL (8.4-10.2); Carbon Dioxide 27 mmol/L (22-30); Glucose 90 mg/dL (75-100); Potassium 4.2 mmol/L (3.6-5.0); Sodium 141 mmol/L (137-145)
--- NOTE | 2017-04-15 09:23 | Emergency Department Report ---
ED Shortness of Breath HPI - General Chief Complaint: Dyspnea/Respdistress Stated Complaint: OSBALDO Time Seen by Provider: 04/15/17 08:32 Source: patient Mode of arrival: Ambulatory Limitations: No Limitations - History of Present Illness Initial Comments: 32-year-old male with a history of recent intubation for altered mental status returns emergency department with shortness of breath. Patient states she's been having a hard time catching his breath he's been home from the hospital. States he was getting worse today. Denies fevers chills no cough. Denies nausea vomiting. MD Complaint: shortness of breath -: Gradual (2) Consistency: constant Improves With: rest Worsens With: other (sitting up) - Related Data Home Medications Medication Instructions Recorded Confirmed Last Taken No Known Home Medications [No 04/15/17 04/15/17 Unknown Reported Home Medications] Allergies Allergy/AdvReac Type Severity Reaction Status Date / Time No Known Allergies Allergy Verified 10/16/15 22:33 ED Review of Systems ROS: Stated complaint: SOBALDO Other details as noted in HPI Comment: All other systems reviewed and negative Constitutional: denies: chills, fever ENT: denies: throat pain, dental pain Respiratory: shortness of breath. denies: cough, wheezing Cardiovascular: denies: chest pain, palpitations Endocrine: no symptoms reported Gastrointestinal: denies: abdominal pain, nausea, diarrhea Genitourinary: denies: urgency, dysuria Musculoskeletal: denies: back pain, joint swelling, arthralgia Skin: denies: rash, lesions Neurological: denies: headache, weakness, paresthesias Psychiatric: denies: anxiety, depression Hematological/Lymphatic: denies: easy bleeding, easy bruising ED Past Medical Hx - Past Medical History Previous Medical History?: Yes Hx Psychiatric Treatment: Yes (DEPRESSION) - Family History Family history: no significant - Social History Smoking Status: Current Every Day Smoker - Medications Home Medications: Home Medications Medication Instructions Recorded Confirmed Last Taken Type No Known Home Medications [No 04/15/17 04/15/17 Unknown History Reported Home Medications] ED Physical Exam - General Limitations: No Limitations General appearance: alert, in no apparent distress - Head Head exam: Present: atraumatic, normocephalic - Eye Eye exam: Present: normal appearance - ENT ENT exam: Present: mucous membranes moist - Expanded ENT Exam Expanded Mouth exam: Present: normal external inspection, tongue normal. Absent: drooling, trismus, muffled voice, tongue elevation - Neck Neck exam: Present: normal inspection - Respiratory Respiratory exam: Present: normal lung sounds bilaterally. Absent: respiratory distress, wheezes, rales, rhonchi - Cardiovascular Cardiovascular Exam: Present: regular rate, normal rhythm. Absent: normal heart sounds, systolic murmur, diastolic murmur, rubs, gallop - GI/Abdominal GI/Abdominal exam: Present: soft, normal bowel sounds - Rectal Rectal exam: Present: deferred - Extremities Exam Extremities exam: Present: normal inspection - Back Exam Back exam: Present: normal inspection - Neurological Exam Neurological exam: Present: alert, oriented X3 - Psychiatric Psychiatric exam: Present: normal affect, normal mood - Skin Skin exam: Present: warm, dry, intact, normal color. Absent: rash ED Course Vital Signs 04/15/17 04/15/17 04/15/17 06:36 06:42 06:52 Temperature 98.5 F 98.5 F 98.1 F Pulse Rate 57 L 57 L 93 H Respiratory 20 22 17 Rate Blood Pressure 150/78 150/78 134/86 O2 Sat by Pulse 100 100 98 Oximetry 04/15/17 04/15/17 04/15/17 08:38 08:45 08:58 Temperature Pulse Rate 47 L 51 L Respiratory 11 L 12 18 Rate Blood Pressure 156/76 O2 Sat by Pulse 96 98 100 Oximetry 04/15/17 04/15/17 04/15/17 09:01 09:15 09:31 Temperature Pulse Rate 46 L 80 58 L Respiratory 7 L 12 20 Rate Blood Pressure 133/71 148/86 157/66 O2 Sat by Pulse 100 98 99 Oximetry 04/15/17 04/15/17 04/15/17 09:45 10:01 10:15 Temperature Pulse Rate 50 L 51 L 52 L Respiratory 13 10 L 20 Rate Blood Pressure 148/86 139/77 140/81 O2 Sat by Pulse 98 99 97 Oximetry 04/15/17 04/15/17 04/15/17 10:31 10:45 11:01 Temperature Pulse Rate 46 L 58 L 52 L Respiratory 9 L 12 16 Rate Blood Pressure 144/85 153/80 153/80 O2 Sat by Pulse 100 98 99 Oximetry 04/15/17 04/15/17 04/15/17 11:15 11:31 11:45 Temperature Pulse Rate 48 L 52 L 46 L Respiratory 13 7 L 13 Rate Blood Pressure 148/88 146/83 146/83 O2 Sat by Pulse 99 100 98 Oximetry 04/15/17 04/15/17 04/15/17 12:01 12:05 12:15 Temperature Pulse Rate 48 L 52 L 47 L Respiratory 9 L 13 Rate Blood Pressure 145/62 145/62 O2 Sat by Pulse 99 99 Oximetry 04/15/17 04/15/17 12:31 12:45 Temperature Pulse Rate 50 L 49 L Respiratory 11 L 24 Rate Blood Pressure 165/60 165/60 O2 Sat by Pulse 100 97 Oximetry ED Medical Decision Making - Lab Data Result diagrams: 04/15/17 07:29 04/15/17 07:20 Laboratory Results - last 24 hr 04/15/17 04/15/17 07:20 07:29 WBC 4.9 RBC 4.22 Hgb 13.8 Hct 39.7 MCV 94 MCH 33 H MCHC 35 H RDW 13.2 Plt Count 171 Lymph % (Auto) 30.1 [place]linger % (Auto) 9.4 H Eos % (Auto) 1.4 Baso % (Auto) 0.5 Lymph # 1.5 [place]linger # 0.5 Eos # 0.1 Baso # 0.0 Seg Neutrophils % 58.6 Seg Neutrophils # 2.8 Sodium 141 Potassium 4.2 Chloride 103.0 Carbon Dioxide 27 Anion Gap 15 BUN 6 L Creatinine 1.0 Estimated GFR > 60 BUN/Creatinine Ratio 6.00 Glucose 90 Calcium 9.1 Troponin T < 0.010 - EKG Data -: EKG Interpreted by Ok - EKG Data 04/15/17 09:29 Sinus bradycardia rate of 47 normal axis normal intervals no ST-T wave changes - Medical Decision Making 32-year-old male who presents emergency Department with complaint of shortness of breath after recent intubation. Patient was recently admitted to the hospital for questionable intoxication and was intubated for a couple days. Since that time he has been having breathing after discharge. No fevers chills nausea vomiting. Chest x-ray does not show anything obvious. Labs are unremarkable. His oxygen levels are normal and his physical exam is normal. ABG is normal. Plan discharge patient home. Discussed at length the possibilities of prolonged sensation of shortness of breath post intubation. Patient will observe closely. Portions of this chart were dictated with dictation software. There may be dictation errors contained within this note. Critical care attestation.: If time is entered above; I have spent that time in minutes in the direct care of this critically ill patient, excluding procedure time. ED Disposition Clinical Impression: Dyspnea Disposition: DC-01 TO HOME OR SELFCARE Is pt being admited?: No Condition: Stable Instructions: Dyspnea (ED) Referrals: PRIMARY CARE, [Primary Care Provider] - 3-5 Days
[2017-04-15] MEDS ORDERED: NACL 0.9% 1000 ML 1,000 ML IV ONE (09:28)
[2017-04-15 12:18] LABS: ISTAT Base Excess 0; ISTAT DEVICE 0; ISTAT HCO3 24.7; ISTAT PCO2 40.7 (35-45); ISTAT PH 7.391 (7.35-7.45); ISTAT PO2 76 (80-105); ISTAT SO2 95; ISTAT TCO2 26
[2017-04-15 14:09] VITALS: BP 146/77
== END 2017-04-15 14:08 | disposition home or self-care (01) ==
LOC: ED 06:33
DX: R06.00 Dyspnea, unspecified (principal); F17.200 Nicotine dependence, unspecified, uncomplicated
CPT/HCPCS: 36415; 71020; 80048; 82803; 84484; 85025; 93005; 93010; 96360